=== PATIENT | male | born 1985 | race Hispanic/Latino ===

== ENCOUNTER 2018-09-18 09:45 | Inpatient (IN) | payer OTHER ==
[2018-09-18] MEDS ORDERED: Sodium Chloride 0.9% 1,000 ML IV STA (10:15)
[2018-09-18 10:31] LABS: BASO # 0.1 K/uL (0.0-0.2); BASO % 0.9 % (0.0-2.0); EOS # 0.2 K/uL (0.0-0.7); EOS % 2.7 % (0.0-4.0); HEMOGLOBIN 15.5 g/dL (12.0-18.0); LYMPH # 2.2 K/uL (1.0-4.3); LYMPH % 34.5 % (20.0-40.0); MEAN CELL VOLUME 92.8 fl (80.0-94.0); MEAN CORPUSCULAR HEMOGLOBIN 31.9 pg (27.0-31.0); MEAN CORPUSCULAR HGB CONC 34.4 g/dL (33.0-37.0); MEAN PLATELET VOLUME 8.7 fl (7.2-11.7); MONO # 0.9 K/uL (0.0-0.8); MONO % 14.2 % (0.0-10.0); NEUT # 3.1 K/uL (1.8-7.0); NEUT % 47.7 % (50.0-75.0); NRBC % 0.2 % (0.0-0.0); RBC 4.86 Mil/uL (4.40-5.90); RED CELL DISTRIBUTION WIDTH 12.5 % (11.5-14.5); WHITE BLOOD COUNT 6.4 K/uL (4.8-10.8)
[2018-09-18 10:42] LABS: BLOOD UREA NITROGEN 16 mg/dl (9-20); GFR NON-AFRICAN AMERICAN > 60
--- NOTE | 2018-09-18 10:44 | ED PDOC ---
HPI: Abdomen Time Seen by Provider: 09/18/18 10:04 Chief Complaint (Nursing): Abdominal Pain Chief Complaint (Provider): Abdominal Pain History Per: Patient History/Exam Limitations: no limitations Onset/Duration Of Symptoms: Days (x3) Current Symptoms Are (Timing): Still Present Additional Complaint(s): 32 year old male presenting, with no significant PMHx, presenting for evaluation of abdominal pain x3 days. Patient reports pain in the RLQ that has been constant for the past 3 days. Patient states the pain was gradual 3 days ago and has become more constant throughout the 3 days. Patient reports the pain is worse with some specific movements and denies taking any medication for his pain. Patient states he went to urgent care this morning and was instructed to present to the ED for further evaluation. Patient otherwise denies any nausea, vomiting, diarrhea, fevers, appetite change, or urinary symptoms. PMD: In [place] Past Medical History Reviewed: Historical Data, Nursing Documentation, Vital Signs Vital Signs: Last Vital Signs Temp 98.2 F 09/18/18 09:59 Pulse 82 09/18/18 09:59 Resp 18 09/18/18 09:59 BP 128/77 09/18/18 09:59 Pulse Ox 99 09/18/18 09:59 - Medical History PMH: No Chronic Diseases - Surgical History Surgical History: No Surg Hx - Family History Family History: States: Unknown Family Hx - Home Medications Home Medications: Ambulatory Orders Medication Instructions Recorded No Known Home Med 09/18/18 - Allergies Allergies/Adverse Reactions: Allergies Allergy/AdvReac Type Severity Reaction Status Date / Time ibuprofen Allergy RASH Verified 09/18/18 10:09 Penicillins Allergy RASH Verified 09/18/18 10:09 Review of Systems ROS Statement: Except As Marked, All Systems Reviewed And Found Negative Constitutional: Negative for: Fever Gastrointestinal: Positive for: Abdominal Pain. Negative for: Nausea, Vomiting, Diarrhea Genitourinary Male: Negative for: Dysuria, Frequency, Incontinence, Hematuria Physical Exam - Reviewed Nursing Documentation Reviewed: Yes Vital Signs Reviewed: Yes - Physical Exam Appears: Positive for: Non-toxic, No Acute Distress Head Exam: Positive for: ATRAUMATIC, NORMAL INSPECTION, NORMOCEPHALIC Skin: Positive for: Normal Color, Warm, DRY Eye Exam: Positive for: EOMI, Normal appearance, PERRL ENT: Positive for: Normal ENT Inspection Neck: Positive for: Normal, Painless ROM Cardiovascular/Chest: Positive for: Regular Rate, Rhythm Respiratory: Positive for: CNT, Normal Breath Sounds Gastrointestinal/Abdominal: Positive for: Soft, Tenderness (RLQ). Negative for: Distended, Guarding, Rebound Back: Positive for: Normal Inspection. Negative for: L CVA Tenderness, R CVA Tenderness, Vertebral Tenderness Extremity: Positive for: Normal ROM. Negative for: Pedal Edema, Deformity Neurologic/Psych: Positive for: Alert, Oriented. Negative for: Motor/Sensory Deficits - Laboratory Results Result Diagrams: 09/18/18 10:10 09/18/18 10:10 - ECG O2 Sat by Pulse Oximetry: 99 (RA) Pulse Ox Interpretation: Normal Medical Decision Making Medical Decision Makin Impression: Differential diagnoses include, but are not limited to acute appendicitis and ureter stones. Plan: -CT abdomen and pelvis -BMP -NPO diet -Urine dip -CBC -NS 1L IVB -IV insertion -Reevaluation 1215 CT AP FINDINGS: LOWER THORAX: Unremarkable. LIVER: Unremarkable. No gross lesion or ductal dilatation. GALLBLADDER AND BILE DUCTS: Unremarkable. PANCREAS: Unremarkable. No gross lesion or ductal dilatation. SPLEEN: Unremarkable. ADRENALS: Unremarkable. No mass. KIDNEYS AND URETERS: Unremarkable. No hydronephrosis. No solid mass. VASCULATURE: Unremarkable. No aortic aneurysm. No aortic atherosclerotic calcification or mural plaque present. BOWEL: Unremarkable. No obstruction. No gross mural thickening. APPENDIX: Mid/distal appendix is dilated and fluid-filled measuring up to 8 mm, with peria ppendiceal stranding. PERITONEUM: Unremarkable. No free fluid. No free air. LYMPH NODES: Unremarkable. No enlarged lymph nodes. BLADDER: Unremarkable. REPRODUCTIVE: Unremarkable. BONES: No acute fracture. OTHER FINDINGS: None. IMPRESSION: Acute appendicitis. No evidence of perforation or adjacent fluid collection. Time: [address] Serrano regarding patient case. He will admit the patient to his service and requests surgical residents. Paged surgery residents. ------- Scribe Attestation: Documented by Maikol Simpson, acting as a scribe for Isabela Gold MD. Provider Scribe Attestation: All medical record entries made by the Scribe were at my direction and personally dictated by me. I have reviewed the chart and agree that the record accurately reflects my personal performance of the history, physical exam, medical decision making, and the department course for this patient. I have also personally directed, reviewed, and agree with the discharge instructions and disposition. Disposition - Clinical Impression Clinical Impression: Acute appendicitis - Patient ED Disposition Is Patient to be Admitted: Yes Discussed With : Rangel Serrano Doctor Will See Patient In The: Hospital Counseled Patient/Family Regarding: Studies Performed, Diagnosis - Disposition Disposition Time: 12:30 Condition: FAIR - Pt Status Changed To: Hospital Disposition Of: Inpatient - Admit Certification Admit to Inpatient:: After my assessment, the patient will require hospitalization for at least two midnights. This is because of the severity of symptoms shown, intensity of services needed, and/or the medical risk in this patient being treated as an outpatient. - POA Present On Arrival: None
[2018-09-18] MEDS ORDERED: Iohexol 300 100 ML IJ ONE (11:33)
[2018-09-18] MEDS ORDERED: Sodium Chloride 0.9% 50 ML IV ONE (11:33)
--- NOTE | 2018-09-18 12:19 | CT ---
Date of service: 09/18/2018 PROCEDURE: CT Abdomen and Pelvis with contrast HISTORY: RLQ pain COMPARISON: None. TECHNIQUE: Contrast dose: 98 mL Omnipaque 300 Radiation dose: Total exam DLP = 397.19 mGy-cm. This CT exam was performed using one or more of the following dose reduction techniques: Automated exposure control, adjustment of the mA and/or kV according to patient size, and/or use of iterative reconstruction technique. FINDINGS: LOWER THORAX: Unremarkable. LIVER: Unremarkable. No gross lesion or ductal dilatation. GALLBLADDER AND BILE DUCTS: Unremarkable. PANCREAS: Unremarkable. No gross lesion or ductal dilatation. SPLEEN: Unremarkable. ADRENALS: Unremarkable. No mass. KIDNEYS AND URETERS: Unremarkable. No hydronephrosis. No solid mass. VASCULATURE: Unremarkable. No aortic aneurysm. No aortic atherosclerotic calcification or mural plaque present. BOWEL: Unremarkable. No obstruction. No gross mural thickening. APPENDIX: Mid/distal appendix is dilated and fluid-filled measuring up to 8 mm, with periappendiceal stranding. PERITONEUM: Unremarkable. No free fluid. No free air. LYMPH NODES: Unremarkable. No enlarged lymph nodes. BLADDER: Unremarkable. REPRODUCTIVE: Unremarkable. BONES: No acute fracture. OTHER FINDINGS: None. IMPRESSION: Acute appendicitis. No evidence of perforation or adjacent fluid collection. Findings conveyed to Dr. Gold by Dr. Tafoya at 12:14 p.m. on 09/18/2018.
[2018-09-18] MEDS ORDERED: Ciprofloxacin 400mg/200ml D5W 400 MG/200 ML BAG IVPB STA (12:32)
[2018-09-18] MEDS ORDERED: metroNIDAZOLE 500mg/100ml NS 100 ML IVPB STA (12:34)
[2018-09-18 12:57] LABS: PROTHROMBIN TIME 11.4 Seconds (9.8-13.1)
[2018-09-18] MEDS ORDERED: Ciprofloxacin 400mg/200ml D5W 400 MG/200 ML BAG IVPB ONE (13:32)
[2018-09-18] MEDS: Lactated Ringer's 1,000 ML IV SCH (15:20)
--- NOTE | 2018-09-18 15:23 | CP.PCM.HP ---
History of Present Illness - History of Present Illness History of Present Illness: Surgery: Dr. Serrano Pt is a 32M with no past medical hx who presents to [facility] with abdominal pain x 3 days. Pt states pain started Sunday evening and he initially thought it was because he hadn't eaten all day. However pain continued sunday and today so his convinced him to come to the ER. Pt states pain is worse in certain positions and with movement but otherwise it doesn't bother him. He points out that pain is in the RLQ and has stayed there the whole time. He denies nausea/vomiting, fevers/chills, chest pain or SOB. In the ER, they did a CT abdomen/pelvis which shows dilated appendix with alexandra- appendiceal fat stranding consistent with appendicitis. Surgery called to evaluate. PMHx: denies PSHx: cyst excision R leg SocialHx: denies smoking, social EtOH, occasional marijuana ALL: Penicillin, Ibuprofen Present on Admission - Present on Admission Any Indicators Present on Admission: No Review of Systems - Review of Systems All systems: reviewed and no additional remarkable complaints except (as per HPI) Past Patient History - Past Medical History & Family History Past Medical History?: No - Past Social History Smoking Status: Never Smoked Alcohol: Social Drugs: Cannabis - CARDIAC Hx Cardiac Disorders: No - PULMONARY Hx Respiratory Disorders: No - NEUROLOGICAL Hx Neurological Disorder: No - HEENT Hx HEENT Problems: No - RENAL Hx Chronic Kidney Disease: No - ENDOCRINE/METABOLIC Hx Endocrine Disorders: No - HEMATOLOGICAL/ONCOLOGICAL Hx Blood Disorders: No Hx AIDS: No Hx Human Immunodeficiency Virus (HIV): No - INTEGUMENTARY Hx Dermatological Problems: No - MUSCULOSKELETAL/RHEUMATOLOGICAL Hx Musculoskeletal Disorders: No Hx Falls: No - GASTROINTESTINAL Hx Gastrointestinal Disorders: No - GENITOURINARY/GYNECOLOGICAL Hx Genitourinary Disorders: No - PSYCHIATRIC Hx Psychophysiologic Disorder: No Hx Substance Use: No - SURGICAL HISTORY Hx Surgeries: Yes Other/Comment: rt leg cyst removal- age 11 yrs old - ANESTHESIA Hx Anesthesia: Yes Hx Anesthesia Reactions: No Hx Malignant Hyperthermia: No Has any member of the family had a problem w/ anesthesia?: No Meds Allergies/Adverse Reactions: Allergies Allergy/AdvReac Type Severity Reaction Status Date / Time ibuprofen Allergy RASH Verified 09/18/18 10:09 Penicillins Allergy RASH Verified 09/18/18 10:09 Physical Exam - Constitutional Appears: Well, No Acute Distress - Head Exam Head Exam: ATRAUMATIC, NORMOCEPHALIC - Eye Exam Eye Exam: Normal appearance - ENT Exam ENT Exam: Mucous Membranes Moist - Respiratory Exam Respiratory Exam: NORMAL BREATHING PATTERN - Cardiovascular Exam Cardiovascular Exam: RRR - GI/Abdominal Exam GI & Abdominal Exam: Soft, Tenderness (to deep palpation in RLQ). absent: Distended, Guarding, Rebound - Neurological Exam Neurological exam: Alert, Oriented x3 - Skin Skin Exam: Dry, Warm Results - Vital Signs Recent Vital Signs: Last Vital Signs Temp 99.3 F 09/18/18 14:12 Pulse 67 09/18/18 14:12 Resp 20 09/18/18 14:12 BP 108/71 09/18/18 14:12 Pulse Ox 98 09/18/18 14:12 - Labs Result Diagrams: 09/18/18 10:10 09/18/18 10:10 Labs: Laboratory Results - last 24 hr 09/18/18 09/18/18 09/18/18 10:10 10:10 12:38 WBC 6.4 RBC 4.86 Hgb 15.5 Hct 45.1 MCV 92.8 MCH 31.9 H MCHC 34.4 RDW 12.5 Plt Count 150 MPV 8.7 Neut % (Auto) 47.7 L Lymph % (Auto) 34.5 [place] % (Auto) 14.2 H Eos % (Auto) 2.7 Baso % (Auto) 0.9 Neut # (Auto) 3.1 Lymph # (Auto) 2.2 [place] # (Auto) 0.9 H Eos # (Auto) 0.2 Baso # (Auto) 0.1 PT 11.4 INR 1.0 APTT 32.0 Sodium 141 Potassium 4.4 Chloride 104 Carbon Dioxide 27 Anion Gap 14 BUN 16 Creatinine 0.9 Est GFR ( Amer) > 60 Est GFR (Non-Af Amer) > 60 Random Glucose 105 Calcium 10.0 Blood Type Antibody Screen BBK History Checked 09/18/18 12:38 WBC RBC Hgb Hct MCV MCH MCHC RDW Plt Count MPV Neut % (Auto) Lymph % (Auto) [place] % (Auto) Eos % (Auto) Baso % (Auto) Neut # (Auto) Lymph # (Auto) [place] # (Auto) Eos # (Auto) Baso # (Auto) PT INR APTT Sodium Potassium Chloride Carbon Dioxide Anion Gap BUN Creatinine Est GFR ( Amer) Est GFR (Non-Af Amer) Random Glucose Calcium Blood Type O POSITIVE Antibody Screen Negative BBK History Checked No verified bt - Imaging and Cardiology CT scan - abdomen Status: Image reviewed by me, Report reviewed by me Assessment & Plan - Assessment and Plan (Free Text) Assessment: 32M with appendicitis Plan: - NPO - IVF, IV ABX - OR in AM for lap appy - d/w Dr. Maggie Melissa
[2018-09-18] MEDS ORDERED: metroNIDAZOLE 500mg/100ml NS 100 ML IVPB SCH (17:00)
[2018-09-18] MEDS: metroNIDAZOLE 500mg/100ml NS 100 ML IVPB SCH (20:33)
[2018-09-19] MEDS: Lactated Ringer's 1,000 ML IV SCH ×2 (00:54→13:10)
[2018-09-19] MEDS: Ciprofloxacin 400mg/200ml D5W 400 MG/200 ML BAG IVPB SCH ×2 (01:01→15:55)
[2018-09-19] MEDS: metroNIDAZOLE 500mg/100ml NS 100 ML IVPB SCH ×2 (04:53→14:14)
[2018-09-19 06:33] LABS: HEMOGLOBIN 14.5 g/dL (12.0-18.0); MEAN CELL VOLUME 93.3 fl (80.0-94.0); MEAN CORPUSCULAR HEMOGLOBIN 31.6 pg (27.0-31.0); MEAN CORPUSCULAR HGB CONC 33.9 g/dL (33.0-37.0); RBC 4.57 Mil/uL (4.40-5.90); RED CELL DISTRIBUTION WIDTH 12.8 % (11.5-14.5); WHITE BLOOD COUNT 5.7 K/uL (4.8-10.8)
[2018-09-19] MEDS ORDERED: Propofol 10 mg/ml Inj (20 ML) ONE (07:10)
[2018-09-19] MEDS ORDERED: Succinylcholine 200 mg/10 ml Inj IV ONE (07:10)
[2018-09-19] MEDS ORDERED: Midazolam 2 MG/2 ML VIAL ONE (07:10)
[2018-09-19] MEDS ORDERED: Rocuronium 10 mg/ml (5 ml) ONE (07:10)
[2018-09-19] MEDS ORDERED: Lidocaine 4% (Laryng-O-Jet) Kit MM ONE (07:11)
[2018-09-19] MEDS ORDERED: Neostigmine 1:1000 (1 mg/ml) Inj ONE (07:11)
[2018-09-19] MEDS ORDERED: Lidocaine 1% Inj (20ml) ONE (07:20)
[2018-09-19] MEDS ORDERED: Dexamethasone 4 mg/1 ml ONE (07:55)
[2018-09-19] MEDS: Bupivacaine 0.5% Inj(30mL) ONE ×2 (07:59→08:51)
[2018-09-19] MEDS ORDERED: Lactated Ringer's 1,000 ML IV ONE (07:59)
[2018-09-19] MEDS ORDERED: Lactated Ringer's 500 ML IV ONE (09:06)
--- NOTE | 2018-09-19 09:26 | PCM.SURG1 ---
Surgeon's Initial Post Op Note - Surgeon's Notes Surgeon: Maggie Conductor Orchestra: Dary PGY4 Type of Anesthesia: General Endo, Local Pre-Operative Diagnosis: Appendicitis Operative Findings: Inflamed appendix, extensive adhesion Post-Operative Diagnosis: same Operation Performed: Laparoscopic appendectomy w. MATEO and WALDO Block Specimen/Specimens Removed: appendix Estimated Blood Loss: EBL {In ML}: 10 Blood Products Given: N/A Drains Used: No Drains Post-Op Condition: Good Date of Surgery/Procedure: 09/19/18 Time of Surgery/Procedure: 09:26
[2018-09-19] MEDS ORDERED: Dexamethasone 4 mg/1 ml IVP PRN (09:27)
[2018-09-19] MEDS: HYDROmorphone 0.5 mg/0.5 ml ISec IVP PRN ×2 (09:35→09:55)
[2018-09-19 11:28] VITALS: RESP 18
--- NOTE | 2018-09-19 14:29 | CP.PCM.DIS ---
Provider - Provider Date of Admission: 09/18/18 12:43 Attending physician: Rangel Serrano MD Time Spent in preparation of Discharge (in minutes): 30 Diagnosis - Discharge Diagnosis (1) Acute appendicitis Status: Acute Hospital Course - Lab Results Lab Results: Most Recent Lab Values WBC 5.7 K/uL (4.8-10.8) 09/19/18 05:20 RBC 4.57 Mil/uL (4.40-5.90) 09/19/18 05:20 Hgb 14.5 g/dL (12.0-18.0) 09/19/18 05:20 Hct 42.6 % (35.0-51.0) 09/19/18 05:20 MCV 93.3 fl (80.0-94.0) 09/19/18 05:20 MCH 31.6 pg (27.0-31.0) H 09/19/18 05:20 MCHC 33.9 g/dL (33.0-37.0) 09/19/18 05:20 RDW 12.8 % (11.5-14.5) 09/19/18 05:20 Plt Count 144 K/uL (130-400) 09/19/18 05:20 MPV 8.7 fl (7.2-11.7) 09/18/18 10:10 Neut % (Auto) 47.7 % (50.0-75.0) L 09/18/18 10:10 Lymph % (Auto) 34.5 % (20.0-40.0) 09/18/18 10:10 [place] % (Auto) 14.2 % (0.0-10.0) H 09/18/18 10:10 Eos % (Auto) 2.7 % (0.0-4.0) 09/18/18 10:10 Baso % (Auto) 0.9 % (0.0-2.0) 09/18/18 10:10 Neut # (Auto) 3.1 K/uL (1.8-7.0) 09/18/18 10:10 Lymph # (Auto) 2.2 K/uL (1.0-4.3) 09/18/18 10:10 [place] # (Auto) 0.9 K/uL (0.0-0.8) H 09/18/18 10:10 Eos # (Auto) 0.2 K/uL (0.0-0.7) 09/18/18 10:10 Baso # (Auto) 0.1 K/uL (0.0-0.2) 09/18/18 10:10 PT 11.4 Seconds (9.8-13.1) 09/18/18 12:38 INR 1.0 09/18/18 12:38 APTT 32.0 Seconds (25.6-37.1) 09/18/18 12:38 Sodium 141 mmol/l (132-148) 09/18/18 10:10 Potassium 4.4 MMOL/L (3.6-5.0) 09/18/18 10:10 Chloride 104 mmol/L (98-107) 09/18/18 10:10 Carbon Dioxide 27 mmol/L (22-30) 09/18/18 10:10 Anion Gap 14 (10-20) 09/18/18 10:10 BUN 16 mg/dl (9-20) 09/18/18 10:10 Creatinine 0.9 mg/dl (0.8-1.5) 09/18/18 10:10 Est GFR ( Amer) > 60 09/18/18 10:10 Est GFR (Non-Af Amer) > 60 09/18/18 10:10 Random Glucose 105 mg/dL (75-110) 09/18/18 10:10 Calcium 10.0 mg/dL (8.4-10.2) 09/18/18 10:10 Blood Type O POSITIVE 09/18/18 12:38 Blood Type Confirm O POSITIVE 09/18/18 17:54 Antibody Screen Negative 09/18/18 12:38 BBK History Checked No verified bt 09/18/18 12:38 - Hospital Course Hospital Course: 32M presented w. appendicitis, underwent lap appy without issue. Clear for D/C from surgical standpoint. Discharge Exam - Head Exam Head Exam: ATRAUMATIC, NORMOCEPHALIC - Eye Exam Eye Exam: EOMI - ENT Exam ENT Exam: Mucous Membranes Moist - Neck Exam Neck exam: Full Rom - Respiratory Exam Respiratory Exam: NORMAL BREATHING PATTERN. absent: Respiratory Distress - GI/Abdominal Exam GI & Abdominal Exam: Soft, Tenderness (alexandra-incisional). absent: Distended, Firm, Guarding, Rigid - Neurological Exam Neurological exam: Alert, Oriented x3 - Psychiatric Exam Psychiatric exam: Normal Affect, Normal Mood - Skin Skin Exam: Dry, Warm Discharge Plan - Discharge Medications Prescriptions: Docusate [Colace] 100 mg PO BID #14 cap Levofloxacin [Levaquin] 500 mg PO DAILY #7 tablet metroNIDAZOLE [Flagyl] 500 mg PO Q8 #21 tab oxyCODONE/Acetaminophen [Percocet 5/325 mg Tab] 1 ea PO Q6 PRN #20 tab PRN Reason: Pain, Moderate (4-7) - Follow Up Plan Condition: FAIR Disposition: HOME/ ROUTINE Patient education suggested?: Yes Instructions: Appendicitis in Adults, How to Wash Your Hands Properly, Staying Safe in the Hospital Additional Instructions: Take meds as instructed No heavy lifting >15-20lbs for 4 weeks Diet as tolerated Call to schedule appointment in 1-2 weeks Referrals: Rangel Serrano MD [Staff Provider] -
[2018-09-19 15:43] VITALS: O2SAT 100
[2018-09-19 17:02] VITALS: BP 121/62; PULSE 91; TEMP 98.8
[2018-09-19] MEDS ORDERED: Influenza Vaccine (5 YR UP)/PF 60 MCG/0.5 ML SYR IM ONE (18:00)
--- NOTE | 2018-09-27 12:22 | OP ---
PROCEDURE DATE: 09/19/2018 PREOPERATIVE DIAGNOSES: 1. Acute appendicitis. 2. Incarcerated umbilical hernia. POSTOPERATIVE DIAGNOSES: 1. Acute appendicitis. 2. Incarcerated umbilical hernia. SURGERIES: 1. Laparoscopic appendectomy. 2. Laparoscopic enterolysis. 3. Repair of incarcerated umbilical hernia. 4. Bilateral sono-guided transversus abdominis plane block anesthesia. SURGEON: Rangel Serrano MD ANESTHESIA: General endotracheal. ESTIMATED BLOOD LOSS: 10 mL. INTRAVENOUS FLUIDS: 800 mL of Ringer's lactate. COMPLICATIONS: None. DRAINS: None. IMPLANTS: None. SPECIMEN: Appendix to pathology. DISPOSITION: Stable, extubated to the recovery room. CLINICAL INFORMATION: Mr. Sgeovia is a 32-year-old healthy male who has been experiencing right lower quadrant abdominal pain, radiating to the umbilicus over the last 24 hours, accompanied by nausea and malaise. He checked in the [facility] ER, and workup including a CT scan of abdomen and pelvis revealed that he had evidence of acute appendicitis and leukocytosis. Also in the clinical exam, he was found to have guarding and tenderness in the right lower quadrant as well as a small incarcerated umbilical hernia. INTRAOPERATIVE FINDINGS: The patient had incarcerated umbilical hernia and inflamed and edematous appendix with small amount of reactive fluid in the right paracolic gutter and adhesions between the cecum, terminal ileum and the appendix. DESCRIPTION OF THE SURGERY: The patient was brought to the operating room, placed on the operating table in the supine position. After smooth induction of general endotracheal anesthesia, Venodyne boots were placed in both legs, and prophylactic antibiotics were given. The entire abdomen was prepped and draped in the usual sterile fashion. The skin overlying the incarcerated umbilical hernia and slightly below that was infiltrated with local anesthetic, which comprised of 0.5% Marcaine and 1% lidocaine with epinephrine in equal volumes. A 15-blade was used to perform an incision in a vertical fashion, which was then brought down to the subcutaneous tissue using Bovie electrocautery. The umbilical hernia sac was identified and freed from its attachment in two layers surrounding subcutaneous tissue all the way to the fascia. The hernial sac was incised. The contents mainly preperitoneal fat and omentum were detached from its attachments to the inner surface of the hernia sac and returned back to the abdominal cavity. A 0-Vicryl stitch was placed on each side of the incised fascia. A Adkins trocar was inserted under direct visualization. The obturator was removed. The port was secured to the abdominal wall with 0 Vicryl stay sutures and attached to the CO2 generating pneumoperitoneum up to 15 mmHg. The patient's position was changed to that of lithotomy with the left side down exposing the right lower quadrant. A 10-mm laparoscopic video camera was inserted, and the abdomen was inspected. The appendix appeared to be inflamed and enlarged, but partly concealed by the terminal ileum, the cecum and adhesions to the omentum with small amount of right paracolic and right pelvic reactive fluid. Two 5-mm ports were inserted in the lower abdomen mainly in the suprapubic area and the left lower quadrant after infiltrating the skin with the same local anesthetic and incising it with a #15-blade. The endograsper and the 5-mm LigaSure were inserted through the 5-mm ports and directed towards the area of the partly concealed appendix. Sharp and blunt dissection of the adhesions took place, which lasted for approximately 10 minutes, and the appendix was freed completely from the attachments of the cecum, the omentum visualized as well as the mesoappendix in its entire length. The 5-mm LigaSure was used to secure the mesoappendix all the way to the base of the appendix and because a part of the base was also inflamed, part of the cecum was exposed. The camera was switched to a 5-mm 30-degree which was inserted through the left lower quadrant port, and an Endo ANA 45 blue stapler was inserted through the infraumbilical port and was fired across the cecum adjacent to the base of the appendix to ensure that the healthy tissue was included, therefore, a partial cecectomy was performed. Appendix which was then sent to Pathology for appropriate labels and for permanent sections. The abdomen was irrigated with copious amount of warm normal saline. There was no evidence of bleeding or sulcus discharge from the staple line. The infraumbilical port was removed, and the fascial defect was closed. The lower part of the umbilical hernia was also closed with interrupted 3-0 Vicryl sutures in a tension-free fashion. The integrity of the fascia closure was checked by inserting a 5-mm 30-degree laparoscopic video camera through the suprapubic port. There was no evidence of bleeding or bowel or omental entrapment. The remaining two 5-mm ports were removed under direct laparoscopic visualization, and there was no evidence of bleeding from the port sites. All skin incisions were closed with 4-0 continuous subcuticular Monocryl stitch and Dermabond was applied. Using the SonoSite probe, a transversus abdominis plane block anesthesia was performed by injecting 10 mL of Marcaine transversus abdominis plane. At the end of the surgery, the counts of the instruments, gauze, and needles were correct x2. The patient tolerated the surgery well and was transferred in stable condition to the recovery room. Rangel Serrano MD
== END 2018-09-19 20:10 | disposition home or self-care (01) | DRG 342 ==
LOC: H.ER 09:45 → H.ERHOLD 12:43 → H.PEDS 13:48
PROVIDERS: ADMIT Specialist; ATTEND Specialist
PROC: 0DTJ4ZZ Resection of Appendix, Percutaneous Endoscopic Approach (ICD-10-PCS; 2018-09-19)
PROC: 0WQF0ZZ Repair Abdominal Wall, Open Approach (ICD-10-PCS; 2018-09-19)
PROC: 3E02340 Introduction of Influenza Vaccine into Muscle, Percutaneous Approach (ICD-10-PCS; principal; 2018-09-19 07:45)
DX: K35.80 Unspecified acute appendicitis (principal); K42.0 Umbilical hernia with obstruction, without gangrene; Z23 Encounter for immunization